=== PATIENT | male | born 1950 | race Caucasian/White ===

== ENCOUNTER 2020-02-06 07:41 | Outpatient (CLI) | payer MEDICARE, SELFPAY ==
--- NOTE | 2020-02-12 19:51 | SLEEP_ITS ---
Home Sleep Test. DATE OF STUDY: 02/06/2020 REASON FOR THIS STUDY: Sleep apnea, unspecified. HISTORY: This patient is a 69-year-old male, 5 feet 7 inches tall, weighing 165 pounds with a body mass index of 25.8. He has a history of loud snoring, which he realized in September of 2019. He snores loudly, deeply and gasps at time. He does not have a family history of this. He occasionally awakens from sleep feeling short of breath. He frequently awakens at night with heartburn, belching, coughing, snoring and snoring loudly enough that others complain about it. He did not complete the entire survey, so some of the questions are unanswered. He is constantly bothered by pain during the day, rarely is awakened by pain at night, occasionally wakes up feeling stiff in the morning, rarely with sore achy muscles, occasionally with pain in the neck and spine. He has dizziness, stomach problems, fatigue, headaches, bowel disturbances, depression, memory problems and concentration difficulties. He goes to bed at 11:00 p.m., waking 1 or 2 times during the night. He will wake up for 5 minutes, will get Tums for his indigestion or go urinate. He wakes at 9 in the morning. He does take short naps. A short nap is not refreshing. He is usually drowsy in the morning for 3 hours or longer. MEDICAL COMORBIDITIES: Chronic headaches. Hemorrhagic stroke, October 2015. 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 Sinus surgery. Depression. Gastroesophageal reflux disease. Hypertension. MEDICATIONS: 1. Adderall 30 mg twice a day and a half tablet at bedtime. 2. Amlodipine 10 mg a day. 3. Butalbital 50 mg. 4. Acetaminophen 325 mg. 5. Caffeine 40 mg. 6. Codeine 30 mg p.r.n. headaches. 7. Cardura 4 mg a day. 8. Carvedilol 12.5 mg twice a day. 9. Clorazepate 15 mg as needed at bedtime. 10. Lisinopril 40 mg daily. 11. Tamsulosin 0.4 mg daily. 12. Tramadol 50 mg q.6 hours. 13. Venlafaxine ER 150 mg daily. HABITS: Tobacco, quit 10 years ago. Caffeine two 12-ounce cups of coffee a day. No alcohol. No recreational drugs. DESCRIPTION OF THE STUDY: On the [place] Sleepiness Scale, his score was 13 in the doctor's office. This test was conducted as an unattended type 3 portable home sleep test using the 4 channel monitoring including respiratory effort channel, snoring channel, oxygen saturation channel, and heart rate channel. The study was scored using [facility] guidelines. The duration of the study was 8 hours 49 minutes. The apnea-hypopnea index was 3, which is low. The oxygen desaturation index was 2.2. The minimum desaturation was 88%. The average saturation was 93%. The patient had 6 apneas, 4 of the apneas were obstructive, 67% and 2 apneas were central, 33%. He had 17 hypopneas, 274 snoring events and 19 desaturations with 2 minutes spent below 89%. Heart rate ranged from 51 to 86 beats per minute. IMPRESSION: This home sleep test does not show evidence of significant sleep-disordered breathing with an apnea-hypopnea index of 3. This is not consistent with the patient's history. He gives a history of loud snoring, choking at night, waking up gasping for breath. It is likely that this AHI on this study underrepresented his degree of sleep-disordered breathing, possibly due to excessive wake time during the night or having left the device on too long. Home sleep tests underestimates severity, as this type of test assumes the patient is asleep the entire duration of the study. This patient's duration was 8 hours 49 minutes. His sleep schedule at home is 8 hours or less. The stakes are high for this patient, as he has had a hemorrhagic stroke and the patients who have untreated sleep apnea are more likely to have recurrent strokes. He also has hypertension, headaches,
== END 2020-02-06 07:42 | disposition home or self-care (01) ==
LOC: ANHCSM 07:48
PROVIDERS: PCP Internal Medicine; Visit Provider Internal Medicine
DX: G47.30 Sleep apnea, unspecified (principal)
CPT/HCPCS: 95806

== ENCOUNTER 2024-06-06 15:35 | Outpatient (CLI) | payer MEDICARE, SELFPAY ==
--- NOTE | 2024-06-06 15:40 | ECG_ITS ---
Test Date: 2024-06-06 16:00:59 Measurements Intervals [place] Rate: 59 P: 55 RI: 148 QRS: 27 QRSD: 78 T: 41 QT: 395 QTc: 391 Interpretive Statements SINUS BRADYCARDIA VOLTAGE CRITERIA FOR LVH BASELINE ARTIFACT- I, II, III, AVR, AVL, AVF, V1-V6 BORDERLINE ECG No previous ECG available for comparison Electronically Signed On 06-06-2024 18:29:10 CDT by Darron Lee D.O.
[2024-06-06 16:20] LABS: Basophils Percent Auto 0.7 % (0.2-1.2); Eosinophils Absolute Auto 0.2 K/mm3 (0-0.3); Eosinophils Percent Auto 4.1 % (0-4.4); Hematocrit 39.8 % (42.0-52.0); Hemoglobin 13.2 g/dL (14.0-18.0); Immature Granulocyte Absolute 0.03 K/mm3 (0.00-0.031); Immature Granulocyte Percent A 0.5 % (0-0.5); Lymphocytes Absolute Auto 1.59 K/mm3 (0.9-3.2); Lymphocytes Percent Auto 26.9 % (18.3-44.2); Mean Corpuscular HGB Conc 33.2 g/dl (32-36); Mean Corpuscular Hemoglobin 31.1 pg (26-34); Mean Corpuscular Volume 93.6 fl (80-100); Mean Platelet Volume 9.5 fl (7.4-10.4); Monocytes Absolute Auto 0.4 K/mm3 (0.1-0.6); Monocytes Percent Auto 7.4 % (2.6-8.5); Neutrophils Absolute Auto 3.6 K/mm3 (1.3-6.7); Neutrophils Percent Auto 60.4 % (45.5-73.1); Platelet Count Result 246 k/mm3 (150-375); Red Blood Count 4.25 M/mm3 (4.6-6.20); Red Cell Distribution Width 13.2 % (11.5-14.5); White Blood Count 5.9 K/mm3 (4.5-10.0)
[2024-06-06 16:31] LABS: Anion Gap 7 mmol/L (4-12); Blood Urea Nitrogen 16 mg/dL (9-20); Calcium 8.9 mg/dL (8.4-10.2); Carbon Dioxide 29 mmol/L (22-30); Chloride 102 mmol/L (98-107); Estimated Glomerular Filt Rate 42; Glucose 100 mg/dL (65-110); Potassium 4.6 mmol/L (3.4-5.0); Sodium 138 mmol/L (137-145)
== END 2024-06-06 15:36 | disposition home or self-care (01) ==
LOC: ANHSURGERY 15:38
PROVIDERS: PCP Internal Medicine; Visit Provider Surgery
DX: Z01.818 Encounter for other preprocedural examination (principal); I10 Essential (primary) hypertension; K40.90 Unilateral inguinal hernia, without obstruction or gangrene, not specified as recurrent; N13.8 Other obstructive and reflux uropathy; N40.1 Benign prostatic hyperplasia with lower urinary tract symptoms
CPT/HCPCS: 36415; 80048; 85025; 86850; 86900; 86901; 93005

== ENCOUNTER 2024-06-09 00:37 | Day surgery (SDC) | payer MEDICARE, SELFPAY ==
[2024-06-05 15:20] VITALS: BMI 23.5
--- NOTE | 2024-06-05 15:22 | PC.NURSE ---
Report to the Outpatient Waiting Room, entrance under the green pavilion located off [facility], at time _0600_ on date _[id number]_. Planned Procedure Time: _0730_. Time changes happen often and if your time is changed the preop area will call you the afternoon before. - You and your visitor will be asked to self-screen and do not enter if you have any COVID symptoms. - A mask is optional within the hospital at this time. Patients may have clear liquids (water, carbonated beverages, clear teas, apple juice) until 3 hours prior to surgery with a maximum of 20 ounces. - No food from midnight until time of surgery Take the following medications with a SIP of water the morning of surgery: ___Carvidilol and Venlafaxine DO NOT STOP ANY OF YOUR OTHER PRESCRIPTION MEDICATIONS PRIOR TO SURGERY ?EXCEPT THE FOLLOWING Medications to discontinue per physician ___Methlyne blue Date to take last fteu__[id number] Please no make-up, nail slovenian, hairspray, perfume, deodorant, or body powder the day of surgery. No jewelry (including any body piercings) or valuables the day of surgery, leave them at home. Please take a shower or bath the night before, or the morning of, surgery with an antibacterial soap. Wear comfortable, loose fitting clothing. - Jewelry must be removed prior to entering the operating room. Rings and piercings that are not removed may be cut off. - The hospital will not accept responsibility for valuables. - Please leave all valuables, including medications, at home the day of surgery. If you are going home after surgery, a licensed driver recruiter must drive you home. - NO public transportation without another adult if you receive anesthesia. - We recommend that an adult stay with you for 24 hours following discharge. - We also recommend that you do not drive, make important decision, drink alcoholic beverages, or take any drugs that were not prescribed by your health care provider for at least 24 hours after your discharge time. Follow any additional instructions given to you from your surgeon. If you or anyone in your household have experienced Covid symptoms in the past week, please notify your surgeon or the nurse liaison at the phone number below for possible testing. Telephone instructions given to __Bruce__and asked if any additional questions and then verbalized understanding. Patient advised to call surgeon office or pre surgery nurse liaison [phone] if any additional questions.
--- NOTE | 2024-06-05 16:19 | PM.SD2 ---
Same Day Admit/Disch: HPI History of Present Illness Chief complaint: left inguinal hernia Narrative: Abdias Matthews is a 74 year old male who presented to the office at the request of Dr. Clifford for evaluation in early April. He reports a 3 to 4-year history of bulging in his left groin with recent developing of associated pain, worse with cough. No change in bowel habits or urinary difficulty. Is able to reduce the bulge when lying down and wears a truss to help keep hernia reduced. He has history of open appendectomy as a child and right inguinal hernia repair by Dr. Bateman in approximately 2002. [facility] Past Medical History Medical History (Updated 06/09/24 @ 09:44 by Ethan Arreola MD) Anxiety Waldron's palsy Headache Hemorrhagic stroke 2014 Hyperlipidemia Hypertension Surgical History Surgical History Hx of appendectomy Open appendectomy as a child Hx of right inguinal hernia repair 2008 Hx of sinus surgery Family History Family History Father Lung cancer Mother Cervical cancer Social History Social History Smoking packs per day: 1 Smoking cigarettes per day: 20.0 Years smoked: 5 Smoking pack-years: 5.00 Smoking status: Former smoker Tobacco type: cigarettes Smoking end date: 06/05/04 Alcohol intake: never Substance use: never Substance use type: does not use Living arrangements: with family Gender identity (if verbalized by the patient): Male Spiritual care concerns: No Same Day Admit/Disch: Med Pre-admit Medications Home Medications Medication Instructions Recorded Confirmed Type kmurlydupm-zakhqdvnmzqcb-ayhgrkzr 1 tablet PO Q6H PRN Pain 04/27/24 06/05/24 History 50 mg-325 mg-40 mg tablet carvedilol 12.5 mg tablet 12.5 mg PO Q12H 04/27/24 06/09/24 History desoximetasone 0.25 % topical 1 applic topical DAILY PRN Rash 04/27/24 06/05/24 History cream (Topicort) dextroamphetamine-amphetamine 30 30 mg PO DAILY 04/27/24 06/09/24 History mg tablet (Adderall) doxazosin 4 mg tablet (Cardura) 4 mg PO DAILY 04/27/24 06/09/24 History finasteride 5 mg tablet 5 mg PO DAILY 04/27/24 06/09/24 History lisinopril 40 mg tablet 40 mg PO DAILY 04/27/24 06/09/24 History methylene blue 65 mg tablet 65 mg PO DAILY 04/27/24 06/09/24 History tamsulosin 0.4 mg capsule 0.4 mg PO DAILY 04/27/24 06/09/24 History tramadol 50 mg tablet 50 mg PO Q6H PRN Pain 04/27/24 06/09/24 History venlafaxine 150 mg 150 mg PO DAILY 04/27/24 06/09/24 History capsule,extended release 24 hr pantoprazole 40 mg tablet,delayed 40 mg PO DAILY #30 tabs 05/11/24 06/09/24 Rx release ibuprofen 600 mg tablet 600 mg PO Q6H PRN pain #14 tabs 06/09/24 Rx oxycodone-acetaminophen 5 mg-325 0.5 - 1 tablet PO Q6H PRN pain #10 06/09/24 Rx mg tablet tabs Review of Systems Review of Systems All systems reviewed & are unremarkable except as noted in HPI and below (HPI) Exam Const: General: comfortable, no acute distress, alert and awake HENMT: Head: normocephalic and atraumatic Mouth: Yes Normal oral and palatal mucosa present Other: Wears eyeglasses Eyes: Conjunctivae: conjunctivae normal Pupils: Equal, round and reactive pupils present EOM: EOMs intact bilaterally Neck: Neck: normal visual inspection, no lymphadenopathy and nontender Resp: Effort & Inspection: normal respiratory effort Auscultation: clear to auscultation bilaterally Cardio: Rate: regular rate Rhythm: regular rhythm Heart sounds: no gallops, no murmurs and no rubs GI: Inspection: non-distended GI Palp: Yes Soft to palpation, No Tenderness to palpation present (GI), No Hepatomegaly present and No Splenomegaly present : Male General Exam: Yes hernia (Left inguinal bulge, pulses with cough, reducible) and Yes other (Scar right groin) Penis: Yes normal penis
--- NOTE | 2024-06-08 15:05 | WPDANESEPPF ---
Anes - Initial Pre Proc Eval Procedure: Operation Date: 06/09/24 07:30 Proposed Procedures p Robotic Left Inguinal Hernia Repair with Mesh - Ethan Arreola MD Date/Time: 06/08/24 15:05 Surgeon: Ethan Arreola MD Pre Op Diagnosis: left inguinal hernia Patient Data Age: 74 Gender: M Height: 1.7 m Weight: 68.2 kg Allergies Allergy/AdvReac Type Severity Reaction Status Date / Time No Known Allergies Allergy Verified 06/09/24 06:15 Home Medications Medication Instructions Recorded Confirmed Type nquxtvcoek-dwjjvvijfirfc-stczvkln 1 tablet PO Q6H PRN Pain 04/27/24 06/05/24 History 50 mg-325 mg-40 mg tablet carvedilol 12.5 mg tablet 12.5 mg PO Q12H 04/27/24 06/09/24 History desoximetasone 0.25 % topical 1 applic topical DAILY PRN Rash 04/27/24 06/05/24 History cream (Topicort) dextroamphetamine-amphetamine 30 30 mg PO DAILY 04/27/24 06/09/24 History mg tablet (Adderall) doxazosin 4 mg tablet (Cardura) 4 mg PO DAILY 04/27/24 06/09/24 History finasteride 5 mg tablet 5 mg PO DAILY 04/27/24 06/09/24 History lisinopril 40 mg tablet 40 mg PO DAILY 04/27/24 06/09/24 History methylene blue 65 mg tablet 65 mg PO DAILY 04/27/24 06/09/24 History tamsulosin 0.4 mg capsule 0.4 mg PO DAILY 04/27/24 06/09/24 History tramadol 50 mg tablet 50 mg PO Q6H PRN Pain 04/27/24 06/09/24 History venlafaxine 150 mg 150 mg PO DAILY 04/27/24 06/09/24 History capsule,extended release 24 hr pantoprazole 40 mg tablet,delayed 40 mg PO DAILY #30 tabs 05/11/24 06/09/24 Rx release Patient hx anesthesia problems: none Family hx anesthesia problems: none Results Review: All pre-operative results and documents have been reviewed as part of the pre-operative evaluation. [facility] Past Medical History Medical History (Updated 06/09/24 @ 06:54 by Braeden J. Luchtefeld, DO) Anxiety Waldron's palsy Headache Hemorrhagic stroke 2015 Hyperlipidemia Hypertension Surgical History Surgical History Hx of appendectomy Open appendectomy as a child Hx of right inguinal hernia repair 2008 Hx of sinus surgery Family History Family History Father Lung cancer Mother Cervical cancer Social History Social History Smoking packs per day: 1 Smoking cigarettes per day: 20.0 Years smoked: 5 Smoking pack-years: 5.00 Smoking status: Former smoker Tobacco type: cigarettes Smoking end date: 06/05/04 Alcohol intake: never Substance use: never Substance use type: does not use Living arrangements: with family Gender identity (if verbalized by the patient): Male Spiritual care concerns: No Anes - Eval Final PreProcedure Day of Procedure 06/08/24 15:05 Patient weight: normal Heart: regular rate and rhythm Lungs: clear to auscultation and normal air movement Airway: Mallampati scale class II Neurological: alert and oriented Last oral intake: >/= 8 hours ASA classification: III Emergent: no Anesthetic plan: proceed Anesthesia type and monitoring: general ETT and standard monitoring Results Review: All pre-operative results and documents have been reviewed as part of the pre-operative evaluation. Informed Consent: The patient's anesthetic plan and its attendant risks and benefits were discussed with the patient/family/POA. Questions were solicited and answers provided to the satisfaction of the patient/family/POA.
[2024-06-09] VITALS (10 sets, daily range): BP systolic 105–123; BP diastolic 62–76; PULSE 56–69; RESP 12–20; TEMP 36.3–36.6; O2SAT 97–100
[2024-06-09] MEDS: ACETAMINOPHEN 500 MG TABLET 1000 MG PO (06:42)
[2024-06-09] MEDS: LACTATED RINGERS 1,000 ML 30 ML IV CONT ×2 (06:50→09:37)
[2024-06-09] MEDS: KETOROLAC 15 MG/ML VIAL (*BKC) IV PUSH (06:56)
--- NOTE | 2024-06-09 07:05 | WPDHPUPDATE1 ---
History and Physical Update Update Date/Time: 06/09/24 07:05 History and Physical has been reviewed, including an updated exam of the patient. There are NO changes in the patient's condition. Risks, benefits, and alternatives have been discussed and questions answered. Patient agrees to proceed with procedure.
[2024-06-09] MEDS: ceFAZolin 2 GM/D5W 50 ML 2 GM/50 ML BAG IVPB (07:42)
[2024-06-09] MEDS: BUPIVACAINE/EPINEPHRINE 0.5% 10 ML VIAL 30 ML INFILTRATE (08:29)
--- NOTE | 2024-06-09 09:34 | W.PM.PROC2 ---
Procedure Note - Detailed Date of Procedure 06/09/24 Pre-op Diagnosis left inguinal hernia Post-op Diagnosis Other (Incarcerated left inguinal hernia) Procedure Performed Robotic laparoscopic repair incarcerated left inguinal hernia with mesh Surgeon Ethan Arreola MD Manager Marketing Communications Cathy WHITE Anesthesia General and Local Indications Patient has had a left inguinal hernia for a few years. It is occasionally painful. He was seen in the office and the diagnosis was confirmed. He has had a previous open right inguinal hernia repair. He is taken to surgery now for robotic laparoscopic repair of his left inguinal hernia with mesh. Findings This was a direct inguinal hernia. It was very medial and it had small bowel incarcerated in the hernia although there was no evidence of proximal small bowel dilatation to suggest obstruction. Description of Procedure Patient was taken to surgery and induced into general anesthesia. Trocars were placed in the usual fashion starting with an applied Medical 5 mm trocar in the left upper abdomen. Local was infiltrated prior to placement of each of the trocars. Once the camera was in the abdomen the remaining trocars were all placed under direct vision and the 5 mm trocar was switched out for an 8 mm robotic trocar under direct visualization. Patient was placed in Trendelenburg. Mesh and suture were placed in the abdomen. The robot was brought into the field and the camera was docked and targeted. The instrument arms were then docked and the instruments were placed. The surgeon then went to the robotic console. The incarcerated small intestine was gently reduced leaving a small but obvious direct inguinal hernia. Peritoneal flap was taken down over the anterior aspect of the inguinal canal. This was developed broadly trying to leave as much of the properitoneal fat on the abdominal wall. More medially, I entered the retro rectus space and dissected down to Titus's ligament. Dissection was carried crossed Titus's ligament and the pubis was exposed. I dissected across the midline at least 2 cm and then also dissected posterior to Titus's ligament a couple of cm. I then progressed laterally and gently took down the peritoneum involved in the direct inguinal hernia. Dissection was carried out anteriorly and on each side and eventually this was able to be fully reduced. I then dissected in the area of the spermatic cord. I carefully dissected the peritoneum and the transversalis sling. The cord vessels and vas deferens were easily seen and were then dissected free from the peritoneum. Some fatty tissue in the internal ring and inguinal canal was reduced and removed. I then dissected the peritoneum off the cord vessels and dissected at least 4 cm posterior to the posterior aspect of the internal ring. I did some additional dissection on the more lateral aspect of Titus's ligament until I had found the wire bound box machine operator plug. The inguinal canal seemed to be very well dissected and exposed for mesh placement. The 16 x 10 cm mid left 3DMax mesh was then positioned. It was secured to the abdominal wall with 3-0 Vicryl suture. Suture were placed in Titus's ligament and then another suture medial to the inferior epigastric vessels. A final anterior suture lateral to the inferior epigastric vessels was also placed. I then closed the peritoneal defect with running 3-0 V lock suture. All looked good. The residual suture and needles were removed. Instruments were removed and insufflation stopped. The robot was undocked and then trocars were removed. Skin incisions were closed with subcuticular running 4-0 Monocryl skin suture. The wounds were dressed with Exofin surgical adhesive. The patient was then awakened and taken to recovery in good condition. Sponge needle counts were correct x2. Implants 16 x 10 cm left mid 3DMax mesh Estimated Blood Loss -5 Drains No Packing No Pathology None sent Complications None Con
== END 2024-06-09 11:28 | disposition home or self-care (01) ==
PROVIDERS: PCP Internal Medicine; Visit Provider Surgery
PROC: 8E0Y4CZ Robotic Assisted Procedure of Lower Extremity, Percutaneous Endoscopic Approach (ICD-10-PCS; CPT 49650; principal; 2024-06-09 07:30)
DX: K40.30 Unilateral inguinal hernia, with obstruction, without gangrene, not specified as recurrent (principal); I10 Essential (primary) hypertension; E78.5 Hyperlipidemia, unspecified; F41.9 Anxiety disorder, unspecified; G51.0 Bell's palsy; Z79.891 Long term (current) use of opiate analgesic; Z79.1 Long term (current) use of non-steroidal anti-inflammatories (NSAID); G89.18 Other acute postprocedural pain; Z98.890 Other specified postprocedural states; Z87.891 Personal history of nicotine dependence; Z80.1 Family history of malignant neoplasm of trachea, bronchus and lung; Z80.49 Family history of malignant neoplasm of other genital organs
CPT/HCPCS: 49507; S2900; 36415; 80048; 85025; 86850; 86900; 86901; 93005; A9270; C1781; J0690; J1100; J1596; J1885; J2405; J2704; J3010; J7030; J7120

== ENCOUNTER 2025-05-30 12:17 | Outpatient (CLI) | payer MEDICARE, SELFPAY ==
--- OUTSIDE RECORDS SUMMARY | 2025-05-30 12:20 | XMS_ITS | Clinical Summary ---
Author Organization [facility] Address [address] [place] [address] Care Team Providers Care Warehouse Shipper Name Role Phone Shahriar Clifford MD Primary Care Provider [phone] Allergies No known active allergies Medications amLODIPine 10 MG tablet Take 10 mg by mouth daily. Active carvedilol 12.5 MG tablet Take 12.5 mg by mouth 2 (two) times daily. Active lisinopril 40 MG tablet Take 40 mg by mouth daily. Active esomeprazole 20 MG capsule Take 20 mg by mouth 2 (two) times a day. Active venlafaxine XR 150 MG 24 hr capsule Take 150 mg by mouth daily. Active tamsulosin 0.4 MG Cap Take 0.4 mg by mouth 2 (two) times a day. Active Multiple Vitamins-Mineral s (MULTIVITAMIN ADULT OR) Active calcium-magnesiu m-zinc 333-133-5 MG Tab Take 1 tablet by mouth daily. Active Dolphin-3 Fatty Acids (OMEGA 3 OR) Active Social History Tobacco Use Types Packs/Day Years Used Date Smoking Tobacco: Former Smokeless Tobacco: Never Alcohol Use Standard Drinks/Week Comments Never 0 (1 standard drink = 0.6 oz pur e alcohol) AUDIT-C Answer Date Recorded Frequency of Alcohol Consumption Never 06/07/2020 Average Number of Drinks Not on file 020 Frequency of Binge Drinking Not on file 05/29 Sex and Gender Information Value Date Recorded Sex Assigned at Not on file Legal Sex Male 3:47 PM CDT Gender Identity Not on file Sexual Orientation Not on file Last Filed Vital Signs Vital Sign Reading Time Taken Comments Blood Pressure 112/76 06/12/2020 4:05 PM CDT Pulse 60 06/12/2020 4:05 PM CDT Temperature 36.3 C (97.3 F) 06/12/2020 3:49 PM CDT Respiratory Rate 19 06/12/2020 4:05 PM CDT Oxygen Saturation 96% 06/12/2020 4:05 PM CDT Inhaled Oxygen Concentration - - Weight 77.1 kg (170 lb) 06/07/2020 1:05 PM CDT Height 172.7 cm (5' 8) 06/07/2020 1:05 PM CDT Body Mass Index 25.85 06/07/2020 1:05 PM CDT Plan of Treatment Health Maintenance Due Date Last Done Comments Hepatitis C 1968 DTaP, Tdap and Td Vaccines ( 1 - Tdap) 1969 Pneumococcal Vaccine: 50+ Ye ars (1 of 1 - PCV) 2000 Zoster Vaccines (1 of 2) 2000 Annual Medicare Wellness Visit 2015 COVID-19 Vaccine ( - 2023-2 5 season) 2024 RSV Immunization or 60+ Years (1 - 1-dose 75+ series) 2025 Colorectal Cancer Screening Colonoscopy (10 Years) 06/12/2030 06/12/2020 Meningococcal B Vaccine Aged Out No l onger eligible based on patient's age to complete this topic Meningococcal Vaccine Aged Out No moises barber eligible based on patient's age to complete this topic RSV Immunizations Under 20 Months Aged Out No longer eligible based on patient's age to complete this topic [place] [address] [facility] Care Teams Warehouse Shipper Relationship Specialty Start Date End Date Shahriar Clifford MD [address] [phone] PCP - General INTERNAL MEDICINE 06/10/20
--- OUTSIDE RECORDS SUMMARY | 2025-05-30 12:20 | XMS_ITS | Encounter Summary ---
Author Organization [facility] Address [address] [place] [address] Care Team Providers Care Interpreter And Translator Name Role Phone Shahriar Clifford MD Primary Care Provider [phone] Encounter Details Date Type Department Care Team (Late st Contact Info) Description 06/11/2020 Prep for Procedure [facility] One [place], [place] [id number] Florencio Garcia MD 3 [facility] [address] [place], [place] [address] Social History Tobacco Use Types Packs/Day Years [...] on file Sexual Orientation Not on file COVID-19 Exposure Response Date Recorded In the last month, have you been in contact with someone who was confirmed or suspected to have Coronavirus / COVID-19? No / Unsure 06/12/2020 1:36 PM CDT documented as of this encounter Plan of Treatment Not on file documented as of this encounter Results * RESPIRATORY PCR PANEL 2 (COLONSCOPY PATIENTS ONLY) (06/11/2020 11:00 AM CDT) Pathologist [facility] ADENOVIRUS PCR (RESP) NOT DETECTED NOT DETECTED 06/11/2020 2:04 PM CDT [facility] CORONAVIRUS 229E PCR (RESP) NOT DETECTED NOT DETECTED 06/11/2020 2:04 PM CDT [facility] CORONAVIRUS HKU1 PCR (RESP) NOT DETECTED NOT DETECTED 06/11/2020 2:04 PM CDT [facility] CORONAVIRUS NL63 PCR (RESP) NOT DETECTED NOT DETECTED 06/11/2020 2:04 PM CDT [facility] CORONAVIRUS OC43 PCR (RESP) NOT DETECTED NOT DETECTED 06/11/2020 2:04 PM CDT [facility] METAPNEUMOVIRUS PCR (RESP) NOT DETECTED NOT DETECTED 06/11/2020 2:04 PM CDT [facility] RHINOVIRUS/ENTEROV IRUS PCR (RESP) NOT DETECTED NOT DETECTED 06/11/2020 2:04 PM CDT [facility] INFLUENZA A PCR (RESP) NOT DETECTED NOT DETECTED 06/11/2020 2:04 PM CDT [facility] INFLUENZA B PCR (RESP) NOT DETECTED NOT DETECTED 06/11/2020 2:04 PM CDT [facility] PARAINFLUENZA 1 PCR (RESP) NOT DETECTED NOT DETECTED 06/11/2020 2:04 PM CDT [facility] PARAINFLUENZA 2 PCR (RESP) NOT DETECTED NOT DETECTED 06/11/2020 2:04 PM CDT [facility] PARAINFLUENZA 3 PCR (RESP) NOT DETECTED NOT DETECTED 06/11/2020 2:04 PM CDT [facility] PARAINFLUENZA 4 PCR (RESP) NOT DETECTED NOT DETECTED 06/11/2020 2:04 PM CDT [facility] RSV PCR (RESP) NOT DETECTED NOT DETECTED 06/11/2020 2:04 PM CDT [facility] B PARAPERTUSIS PCR (RESP) NOT DETECTED NOT DETECTED 06/11/2020 2:04 PM CDT [facility] BORDETELLA PERTUSSIS PCR (RESP) NOT DETECTED NOT DETECTED 06/11/2020 2:04 PM CDT [facility] CHLAMYDOPHILA PNEUMONIAE PCR (RESP) NOT DETECTED NOT DETECTED 06/11/2020 2:04 PM CDT [facility] MYCOPLASMA PNEUMONIAE PCR (RESP) NOT DETECTED NOT DETECTED 06/11/2020 2:04 PM CDT [facility] CORONAVIRUS SARS COV 2 PCR (RESP) NOT DETECTED NOT DETECTED 06/11/2020 2:04 PM CDT [facility] Comment: THE SARS-CoV-2 TEST HAS BEEN AUTHORIZED BY THE FDA UNDER AN EUA FOR USE BY AUTHORIZED LABORATORIES. NASOPHARYNGEAL STRUCTURE / Unknown 06/11/2020 11:00 AM CDT Florencio Garcia MD MICROBIOLOGY - [facility] ELIZABETH FUENTES Final Result [facility] [address] [place] [address], documented in this encounter Visit Diagnoses Diagnosis Positive colorectal cancer screening using Cologuard test- Primary documented in this encounter Additional Health Concerns Infection Onset Date Last Indicated Resolved Time COVID-19 Rule Out 06/11/2020 06/11/2020 06/11/2020 2:04 PM CDT documented as of this encounter Care Teams Interpreter And Translator Relationship Specialty Start Date End Date Shahriar Clifford MD [address] [phone] PCP - General INTERNAL MEDICINE 06/10/20 documented as of this encounter
--- OUTSIDE RECORDS SUMMARY | 2025-05-30 12:20 | XMS_ITS | Continuity of Care Document ---
Author Organization [facility] Address [address] [place] [address] [place] [address] Phone Care Team Providers Care Adolescent Medicine Specialist Name Role Phone Langford OD, Kayode Unavailable Unavailable Procedures Procedure Date Office/outpatient Visit, Est Eye Exam, New Patient Refraction Advance Directives Directive Yes / No Effective Date File Name No Information Encounters Encounter Description Practice Location Reason(s) For Visit Diagnoses Date Provider Providers Copied on Encounter Office/outpat ient Visit, Est [facility] with [facility], [address] [place] [address] [address], [place], [place], [id number], [place] tel:[phone] SEC [facility] No Information 3-201 0 Langford OD Kayode. [address] , [address], [place], [address], [place]. tel:[phone] Merged with [facility], [address] [place] [address] [address], [place], [place], [id number], [place] tel:[phone] SEC [facility] No Information 5-200 9 Langford OD Kayode. [address] , [address], [place], [address], [place]. tel:[phone] Family History Family Member Type Diagnosis Age [...]
[2025-05-30 13:11] LABS: Hematocrit 35.8 % (42.0-52.0); Hemoglobin 11.2 g/dL (14.0-18.0); Mean Corpuscular HGB Conc 31.3 g/dl (32-36); Mean Corpuscular Hemoglobin 28.6 pg (26-34); Mean Corpuscular Volume 91.6 fl (80-100); Platelet Count Result 382 k/mm3 (150-375); Red Blood Count 3.91 M/mm3 (4.6-6.20); White Blood Count 8.4 K/mm3 (4.5-10.0)
[2025-05-30 13:29] LABS: Iron 30 ug/dL (49-181)
[2025-05-30 13:33] LABS: Alanine Aminotransferase 13 U/L (6-50); Albumin Level 3.3 g/dL (3.5-5.1); Alkaline Phosphatase 91 U/L (38-126); Anion Gap 9 mmol/L (4-12); Aspartate Amino Transferase 27 U/L (17-59); Bilirubin,Total 0.2 mg/dL (0.2-1.3); Blood Urea Nitrogen 22 mg/dL (9-20); CRP. 5.7 mg/dL (<1.0); Calcium 9.2 mg/dL (8.4-10.2); Carbon Dioxide 25 mmol/L (22-30); Chloride 103 mmol/L (98-107); Estimated Glomerular Filt Rate > 60; Glucose 93 mg/dL (65-110); Potassium 4.5 mmol/L (3.4-5.0); Sodium 137 mmol/L (137-145); Total Protein 6.2 g/dL (6.3-8.2)
[2025-05-30 13:38] LABS: Percent Iron Saturation 10 % (20-50)
[2025-05-30 14:01] LABS: Hepatitis B Surface Antigen Negative (Negative)
[2025-05-30 14:06] LABS: Ferritin 53.50 ng/mL (11.1-264)
[2025-05-30 14:07] LABS: HAV RESULT Negative (Negative); Hepatitis B Core IgM Result Negative (Negative)
[2025-05-30 14:36] LABS: Vitamin B12. > 1000.0 pg/mL (239-931)
[2025-06-02 08:04] LABS: Gliadin AB, IgG <1.0 U/mL
[2025-06-04 14:18] LABS: Immunoglobulin A 135 mg/dL (70-320); TTG IGA AB <1.0 U/mL
== END 2025-05-30 12:18 | disposition home or self-care (01) ==
LOC: ANHLAB 12:18
PROVIDERS: PCP Internal Medicine; Visit Provider Nurse Practitioner
DX: D64.9 Anemia, unspecified (principal); R63.4 Abnormal weight loss; K52.9 Noninfective gastroenteritis and colitis, unspecified; R19.4 Change in bowel habit; R10.9 Unspecified abdominal pain; R13.10 Dysphagia, unspecified; R53.1 Weakness
CPT/HCPCS: 36415; 80053; 80074; 82607; 82728; 82746; 82784; 83540; 83550; 85027; 85652; 86140

== ENCOUNTER 2025-06-08 09:15 | Outpatient (CLI) | payer MEDICARE, SELFPAY ==
--- NOTE | ~2025-06-08 | CT_ITS ---
Clinical Indication: Abnormal weight loss CT Scan of the Chest, Abdomen, and Pelvis with Contrast: Technique: Contiguous sections were acquired throughout the chest, abdomen, and pelvis after intraven ous administration of 100 cc of Omnipaque 350. Dose reduction technique was used on this scan by coleen gallegos automated exposure control and iterative reconstruction technique. The dose-length product (DL P) was 316.38 mGy-cm. Findings: There is no evidence of any significant mediastinal, hilar or axillary lymphadenopathy. No pulmonary embolus seen. Ascending aorta measures 4.4 cm in diameter. No aortic dissection. Small hiatal hernia noted. There is no evidence of pleural or pericardial effusion. The lungs are clear. No pulmonary nodules or infiltrates are noted. Numerous scattered hepatic cysts are present. The spleen, pancreas, gallbladder, and adrenal glands a re within normal limits. Numerous small bilateral renal cysts are present. There are atherosclerotic calcifications of the aorta. No lymphadenopathy. Possible extensive wall thickening of the transverse, descending, sigmoid colon versus underdistentio n. No bowel obstruction. No abscess or free air. Urinary bladder is unremarkable. No pelvic mass seen. No ascites. Impression: Possible extensive infectious/inflammatory colitis, as detailed above, versus underdistention. Correl ate clinically. 4.4 cm ascending aortic aneurysm. Hepatic and renal cysts, as above. Reviewed, dictated and finalized at location . Impression: Possible extensive infectious/inflammatory colitis, as detailed above, versus u nderdistention. Correlate clinically. 4.4 cm ascending aortic aneurysm. Hepatic and renal cysts, as above.
--- OUTSIDE RECORDS SUMMARY | 2025-06-08 09:24 | XMS_ITS | Encounter Summary ---
Author Organization [facility] Address [address] [place] [address] Care Team Providers Care Relief Mate Name Role Phone Shahriar Clifford MD Primary Care Provider [phone] Encounter Details Date Type Department Care Team (Late st Contact Info) Description 06/11/2020 Prep for Procedure [facility] One Day [place], [place] [address] Florencio Garcia MD 3 [facility] [address] [place], [place] [address] Social History Tobacco Use Types Packs/Day Years [...] PATIENTS ONLY) (06/11/2020 11:00 AM CDT) Pathologist [facility] ADENOVIRUS PCR (RESP) NOT DETECTED NOT DETECTED 06/11/2020 2:04 PM CDT [facility] CORONAVIRUS 229E PCR (RESP) NOT DETECTED NOT DETECTED 06/11/2020 2:04 PM CDT [facility] CORONAVIRUS HKU1 PCR (RESP) NOT DETECTED NOT DETECTED 06/11/2020 2:04 PM CDT [facility] CORONAVIRUS NL63 PCR (RESP) NOT DETECTED NOT DETECTED 06/11/2020 2:04 PM CDT [facility] CORONAVIRUS OC43 PCR (RESP) NOT DETECTED NOT DETECTED 06/11/2020 2:04 PM CDT [facility] METAPNEUMOVIRUS PCR (RESP) NOT DETECTED NOT DETECTED 06/11/2020 2:04 PM CDT [facility] RHINOVIRUS/ENTEROV IRUS PCR (RESP) NOT DETECTED NOT DETECTED 06/11/2020 2:04 PM CDT [facility] INFLUENZA A PCR (RESP) NOT DETECTED NOT DETECTED 06/11/2020 2:04 PM CDT [facility] INFLUENZA B PCR (RESP) NOT DETECTED NOT DETECTED 06/11/2020 2:04 PM CDT [facility] PARAINFLUENZA 1 PCR (RESP) NOT DETECTED NOT DETECTED 06/11/2020 2:04 PM CDT [facility] PARAINFLUENZA 2 PCR (RESP) NOT DETECTED NOT DETECTED 06/11/2020 2:04 PM CDT [facility] PARAINFLUENZA 3 PCR (RESP) NOT DETECTED NOT DETECTED 06/11/2020 2:04 PM CDT [facility] PARAINFLUENZA 4 PCR (RESP) NOT DETECTED NOT DETECTED 06/11/2020 2:04 PM CDT [facility] RSV PCR (RESP) NOT DETECTED NOT DETECTED 06/11/2020 2:04 PM CDT [facility] B PARAPERTUSIS PCR (RESP) NOT DETECTED NOT DETECTED 06/11/2020 2:04 PM CDT [facility] BORDETELLA PERTUSSIS PCR (RESP) NOT DETECTED NOT DETECTED 06/11/2020 2:04 PM CDT [facility] CHLAMYDOPHILA PNEUMONIAE PCR (RESP) NOT DETECTED NOT DETECTED 06/11/2020 2:04 PM CDT [facility] MYCOPLASMA PNEUMONIAE PCR (RESP) NOT DETECTED NOT DETECTED 06/11/2020 2:04 PM CDT [facility] CORONAVIRUS SARS COV 2 PCR (RESP) NOT DETECTED NOT DETECTED 06/11/2020 2:04 PM CDT [facility] Comment: THE SARS-CoV-2 TEST HAS BEEN AUTHORIZED BY THE FDA UNDER AN EUA FOR USE BY AUTHORIZED LABORATORIES. NASOPHARYNGEAL STRUCTURE / Unknown 06/11/2020 11:00 AM CDT Florencio Garcia MD MICROBIOLOGY - [facility] ELIZABETH FUENTES Final Result [facility] [address] [place] [address], documented in this encounter Visit Diagnoses Diagnosis Positive colorectal cancer screening using Cologuard test- Primary documented in this encounter Additional Health Concerns Infection Onset Date Last Indicated Resolved Time COVID-19 Rule Out 06/11/2020 06/11/2020 06/11/2020 2:04 PM CDT documented as of this encounter Care Teams Relief Mate Relationship Specialty Start Date End Date Shahriar Clifford MD [address] [phone] PCP - General INTERNAL MEDICINE 06/10/20 documented as of this encounter
--- OUTSIDE RECORDS SUMMARY | 2025-06-08 09:24 | XMS_ITS | Clinical Summary ---
Author Organization [facility] Address [address] [place] [address] Care Team Providers Care Document Preparer Microfilming Name Role Phone Shahriar Clifford MD Primary Care Provider [phone] Allergies No known active allergies Medications amLODIPine [...] Take 1 tablet by mouth daily. Active [place]-3 Fatty Acids (OMEGA 3 OR) Active Social [...] to complete this topic [place] [place] [address] [facility] [place] [address] Care Teams Document Preparer Microfilming Relationship Specialty Start Date End Date Shahriar Clifford MD [address] [phone] PCP - General INTERNAL MEDICINE 06/10/20
--- OUTSIDE RECORDS SUMMARY | 2025-06-08 09:24 | XMS_ITS | Continuity of Care Document ---
Author Organization [facility] Address [address] [place] [address] [place] [address] Phone Care Team Providers Care Senior Estimator Name Role Phone Langford OD, Kayode Unavailable Unavailable Procedures Procedure Date Office/outpatient Visit, Est Eye Exam, New Patient Refraction Advance Directives Directive Yes / No Effective Date File Name No Information Encounters Encounter Description Practice Location Reason(s) For Visit Diagnoses Date Provider Providers Copied on Encounter Office/outpat ient Visit, Est [facility], [address] [place] [address] [address], [place], [place], [id number], [place] tel:[phone] SEC [facility] No Information 3-201 0 Langford OD Kayode. [address] , [address], [place], [address], [place]. tel:[phone] [facility], [address] [place] [address] [address], [place], [place], [id number], [place] tel:[phone] SEC [facility] No Information 5-200 9 Langford OD Kayode. [address] , [address], [place], [address], [place]. tel:[phone] Family History Family Member Type Diagnosis Age [...]
== END 2025-06-08 09:16 | disposition home or self-care (01) ==
PROVIDERS: PCP Internal Medicine; Visit Provider Nurse Practitioner
DX: D64.9 Anemia, unspecified (principal); K52.9 Noninfective gastroenteritis and colitis, unspecified; R10.9 Unspecified abdominal pain; R13.10 Dysphagia, unspecified; R19.4 Change in bowel habit; R53.1 Weakness; R63.4 Abnormal weight loss; N28.1 Cyst of kidney, acquired; K76.89 Other specified diseases of liver; I71.40 Abdominal aortic aneurysm, without rupture, unspecified
CPT/HCPCS: 71260; 74177; Q9967

== ENCOUNTER 2025-08-03 01:51 | Day surgery (SDC) | payer MEDICARE, SELFPAY ==
--- OUTSIDE RECORDS SUMMARY | 2010-04-10 07:45 | XMS_ITS | Continuity of Care Document ---
Author Organization [facility] Address [address] [place] [address] [place] [address] Phone Care Team Providers Care Weaver Apprentice Name Role Phone Langford OD, Kayode Unavailable Unavailable Procedures Procedure Date Office/outpatient Visit, Est Eye Exam, New Patient Refraction Advance Directives Directive Yes / No Effective Date File Name No Information Encounters Encounter Description Practice Location Reason(s) For Visit Diagnoses Date Provider Providers Copied on Encounter Office/outpat ient Visit, Est [facility], [address] [place] [address] [address], [place], [place], [id number], [place] tel:[phone] [facility] No Information 3-201 0 Langford OD Kayode. [address] [facility] , [address], [place], [address], [place]. tel:[phone] [facility], [address] [place] [address] [address], [place], [place], [id number], [place] tel:[phone] [facility] No Information 5-200 9 Langford OD Kayode. [address] , [address], [place], [address], [place]. tel:[phone] Family History Family Member Type Diagnosis Age At Onset No Information Payers Payer name Insurance type Covered democrat ID Authoriza tion(s) No Information Social History Type Description Quantity Date Captured Comments Sex Male Smoking Status No Information Chief Complaint And Reason For Visit No Information Reason For Referral Reason For Referral No Information History Of Present Illness Encounter Date Complaint History Of Prese nt Illness No Information Functional Status Date Functional Assessmen t No Information Instructions Date Instruction Additional Infor mation No Information Assessments Type Assessment Date No Information Patient Care Teams Name Effective Dates (start - stop) Status Members No Information
[2025-07-24 09:28] VITALS: BMI 23.5
--- OUTSIDE RECORDS SUMMARY | 2025-08-03 01:54 | XMS_ITS | Encounter Summary ---
Author Organization [facility] Address [address] [place] [address] Care Team Providers Care Stitch Marker Name Role Phone Shahriar Clifford MD Primary Care Provider [phone] Encounter Details Date Type Department Care Team (Late st Contact Info) Description 06/11/2020 Prep for Procedure [facility] One Day [facility] [place], [place] [address] Florencio Garcia MD 3 [facility] [address] [place], [place] [address] Social History Tobacco Use Types Packs/Day Years [...] PATIENTS ONLY) (06/11/2020 11:00 AM CDT) Pathologist [facility] ADENOVIRUS PCR (RESP) NOT DETECTED NOT DETECTED 06/11/2020 2:04 PM CDT [facility] CORONAVIRUS 229E PCR (RESP) NOT DETECTED NOT DETECTED 06/11/2020 2:04 PM CDT [facility] CORONAVIRUS HKU1 PCR (RESP) NOT DETECTED NOT DETECTED 06/11/2020 2:04 PM CDT [facility] CORONAVIRUS NL63 PCR (RESP) NOT DETECTED NOT DETECTED 06/11/2020 2:04 PM CDT [facility] CORONAVIRUS OC43 PCR (RESP) NOT DETECTED NOT DETECTED 06/11/2020 2:04 PM CDT [facility] METAPNEUMOVIRUS PCR (RESP) NOT DETECTED NOT DETECTED 06/11/2020 2:04 PM CDT [facility] RHINOVIRUS/ENTEROV IRUS PCR (RESP) NOT DETECTED NOT DETECTED 06/11/2020 2:04 PM CDT [facility] INFLUENZA A PCR (RESP) NOT DETECTED NOT DETECTED 06/11/2020 2:04 PM CDT [facility] INFLUENZA B PCR (RESP) NOT DETECTED NOT DETECTED 06/11/2020 2:04 PM CDT [facility] PARAINFLUENZA 1 PCR (RESP) NOT DETECTED NOT DETECTED 06/11/2020 2:04 PM CDT [facility] PARAINFLUENZA 2 PCR (RESP) NOT DETECTED NOT DETECTED 06/11/2020 2:04 PM CDT [facility] PARAINFLUENZA 3 PCR (RESP) NOT DETECTED NOT DETECTED 06/11/2020 2:04 PM CDT [facility] PARAINFLUENZA 4 PCR (RESP) NOT DETECTED NOT DETECTED 06/11/2020 2:04 PM CDT [facility] RSV PCR (RESP) NOT DETECTED NOT DETECTED 06/11/2020 2:04 PM CDT [facility] B PARAPERTUSIS PCR (RESP) NOT DETECTED NOT DETECTED 06/11/2020 2:04 PM CDT [facility] BORDETELLA PERTUSSIS PCR (RESP) NOT DETECTED NOT DETECTED 06/11/2020 2:04 PM CDT [facility] CHLAMYDOPHILA PNEUMONIAE PCR (RESP) NOT DETECTED NOT DETECTED 06/11/2020 2:04 PM CDT [facility] MYCOPLASMA PNEUMONIAE PCR (RESP) NOT DETECTED NOT DETECTED 06/11/2020 2:04 PM CDT [facility] CORONAVIRUS SARS COV 2 PCR (RESP) NOT DETECTED NOT DETECTED 06/11/2020 2:04 PM CDT [facility] Comment: THE SARS-CoV-2 TEST HAS BEEN AUTHORIZED BY THE FDA UNDER AN EUA FOR USE BY AUTHORIZED LABORATORIES. NASOPHARYNGEAL STRUCTURE / Unknown 06/11/2020 11:00 AM CDT Florencio Garcia MD MICROBIOLOGY - [facility] ELIZABETH FUENTES Final Result [facility] [address] [place] [address], documented in this encounter Visit Diagnoses Diagnosis Positive colorectal cancer screening using Cologuard test- Primary documented in this encounter Additional Health Concerns Infection Onset Date Last Indicated Resolved Time COVID-19 Rule Out 06/11/2020 06/11/2020 06/11/2020 2:04 PM CDT documented as of this encounter Care Teams Stitch Marker Relationship Specialty Start Date End Date Shahriar Clifford MD [address] [phone] PCP - General INTERNAL MEDICINE 06/10/20 documented as of this encounter
--- OUTSIDE RECORDS SUMMARY | 2025-08-03 01:54 | XMS_ITS | Clinical Summary ---
Author Organization [facility] Address [address] [place] [address] Care Team Providers Care Ent Physician Name Role Phone Shahriar Clifford MD Primary Care Provider [phone] Allergies No known active allergies Medications amLODIPine [...] Take 1 tablet by mouth daily. Active [place]-3 Fatty Acids (OMEGA 3 OR) Active Social [...] to complete this topic [place] [place] [address] [facility] Care Teams Ent Physician Relationship Specialty Start Date End Date Shahriar Clifford MD [address] [phone] PCP - General INTERNAL MEDICINE 06/10/20
[2025-08-03 12:52] VITALS: BP 159/86; PULSE 67; RESP 16; TEMP 36.6; O2SAT 99
--- NOTE | 2025-08-03 12:53 | P.PNAN_ITS ---
Anes - Initial Pre Proc Eval Procedure: Operation Date: 08/03/25 14:00 Proposed Procedures p EGD & Diagnostic Colonoscopy - Savage Ramsay MD Date/Time: 08/03/25 12:53 Surgeon: Savage Ramsay MD Pre Op Diagnosis: Hiccough, Unspecified abdominal pain Patient Data Age: 75 Gender: M Height: 1.7 m Weight: 68.1 kg Allergies Allergy/AdvReac Type Severity Reaction Status Date / Time No Known Allergies Allergy Verified 08/03/25 12:51 Home Medications ?Medication ?Instructions ?Recorded ?Confirmed ?Type ahzukxazof-gnxrqtjrjfbjt-ifkfzgzd 1 tablet PO Q6H PRN Pain 04/27/24 07/24/25 History 50 mg-325 mg-40 mg tablet carvedilol 12.5 mg tablet 12.5 mg PO Q12H 04/27/2404/22 History desoximetasone 0.25 % topical 1 applic topical DAILY P RN Rash 04/27/24 07/24/25 History cream (Topicort) dextroamphetamine-amphetamine 30 30 mg PO DAILY 08/03/25 History mg tablet (Adderall) doxazosin 4 mg tablet (Cardura) 4 mg PO DAILY 04/27/24 08/03/25 History finasteride 5 mg tablet 5 mg PO DAILY 04/27/2408/03 History lisinopril 40 mg tablet 40 mg PO DAILY 04/27/2404/22 History tamsulosin 0.4 mg capsule 0.4 mg PO DAILY 04/27/2404/22 History tramadol 50 mg tablet 50 mg PO Q6H PRN Pain 07/24/25 History venlafaxine 150 mg 150 mg PO DAILY 04/27/2404/22 History capsule,extended release 24 hr pantoprazole 40 mg tablet,delayed 40 mg PO DAILY #30 t abs 05/11/24 08/03/25 Rx release cholestyramine (with sugar) 4 gram 4 g PO BID #60 ea 0 05/31/25 07/24/25 Rx powder for susp in a packet (Questran) clorazepate dipotassium 7.5 mg 7.5 mg PO .COMPLEX PRN anxiety 07/24/25 07/24/25 History tablet Patient hx anesthesia problems: none Family hx anesthesia problems: none Results Review: All pre-operative results and documents have been reviewed as part of the pre- operative evaluation. [facility] Past Medical History Medical History (Updated 08/03/25 @ 12:54 by Braeden Cornelius DO) AAA (abdominal aortic aneurysm) Waldron's palsy Anxiety Hyperlipidemia Hypertension Headache Hemorrhagic stroke 2014 Surgical History Surgical History H/O left inguinal hernia repair 06/09/24 Dr. Arreola Hx of sinus surgery Hx of appendectomy Open appendectomy as a child Hx of right inguinal hernia repair 2008 Family History Family History Father Lung cancer Mother Cervical cancer Social History Social History Smoking packs per day: 1 Smoking cigarettes per day: 20.0 Years smoked: 5 Smoking pack-years: 5.00 Smoking status: Former smoker Tobacco type: cigarettes Smoking end date: 06/05/04 Alcohol intake: never Substance use: never Substance use type: does not use Living arrangements: with family Gender identity (if verbalized by the patient): Male Spiritual care concerns: No Anes - Eval Final PreProcedure Day of Procedure 08/03/25 12:53 Patient weight: normal Heart: regular rate and rhythm Lungs: clear to auscultation and normal air movement Airway: Mallampati scale class II Neurological: alert and oriented Last oral intake: >/= 8 hours ASA classification: III Emergent: no Anesthetic plan: proceed Anesthesia type and monitoring: general GIVS and standard monitoring Results Review: All pre-operative results and documents have been reviewed as part of the pre- operative evaluation. Informed Consent: The patient's anesthetic plan and its attendant risks and benefits were discussed with the patient/family/POA. Questions were solicited and answers provided to the satisfaction of the patient/family/POA.
[2025-08-03] MEDS: LACTATED RINGERS 1,000 ML 150 ML IV CONT (12:58)
--- NOTE | 2025-08-03 12:58 | SUR.PREOP ---
Spoke to Dr. Cornelius about abdominal aortic aneurysm that was found on CT scan. Notified him patient has not followed with anyone about these results. He is okay proceeding with procedure.
--- NOTE | 2025-08-03 13:03 | PM.HPGS ---
History of Present Illness History of Present Illness Consent: Risks, benefits, and alternatives have been discussed and questions answered. Patient agrees to proceed with procedure. Chief complaint: Hiccough, Unspecified abdominal pain Narrative: Abdias Matthews is a 75 year old male with diarrhea, serology for celiac negative and also dysphagia Review of Systems Review of Systems: All systems reviewed & are unremarkable except as noted in HPI and below PMFSH Past Medical History Medical History (Updated 08/03/25 @ 12:54 by Braeden Cornelius, ) AAA (abdominal aortic aneurysm) Waldron's palsy Anxiety Hyperlipidemia Hypertension Headache Hemorrhagic stroke 2014 Surgical History Surgical History H/O left inguinal hernia repair 06/09/24 Dr. Arreola Hx of sinus surgery Hx of appendectomy Open appendectomy as a child Hx of right inguinal hernia repair 2008 Family History Family History Father Lung cancer Mother Cervical cancer Social History Social History Smoking packs per day: 1 Smoking cigarettes per day: 20.0 Years smoked: 5 Smoking pack-years: 5.00 Smoking status: Former smoker Tobacco type: cigarettes Smoking end date: 06/05/04 Alcohol intake: never Substance use: never Substance use type: does not use Living arrangements: with family Gender identity (if verbalized by the patient): Male Spiritual care concerns: No Meds Home Medications and Allergies Home Medications ?Medication ?Instructions ?Recorded ?Confirmed ?Type nevtwofsze-neqwwlkyeiqfr-nypvzrvw 1 tablet PO Q6H PRN Pain 04/27/24 07/24/25 History 50 mg-325 mg-40 mg tablet carvedilol 12.5 mg tablet 12.5 mg PO Q12H 04/27/24 08/03/25 History desoximetasone 0.25 % topical 1 applic topical DAILY PRN Rash 04/27/24 07/24/25 History cream (Topicort) dextroamphetamine-amphetamine 30 30 mg PO DAILY 04/27/24 08/03/25 History mg tablet (Adderall) doxazosin 4 mg tablet (Cardura) 4 mg PO DAILY 04/27/24 08/03/25 History finasteride 5 mg tablet 5 mg PO DAILY 04/27/24 08/03/25 History lisinopril 40 mg tablet 40 mg PO DAILY 04/27/24 08/03/25 History tamsulosin 0.4 mg capsule 0.4 mg PO DAILY 04/27/24 08/03/25 History tramadol 50 mg tablet 50 mg PO Q6H PRN Pain 04/27/24 07/24/25 History venlafaxine 150 mg 150 mg PO DAILY 04/27/24 08/03/25 History capsule,extended release 24 hr pantoprazole 40 mg tablet,delayed 40 mg PO DAILY #30 tabs 05/11/24 08/03/25 Rx release cholestyramine (with sugar) 4 gram 4 g PO BID #60 ea 05/31/25 07/24/25 Rx powder for susp in a packet (Questran) clorazepate dipotassium 7.5 mg 7.5 mg PO .COMPLEX PRN anxiety 07/24/25 07/24/25 History tablet Allergies Allergy/AdvReac Type Severity Reaction Status Date / Time No Known Allergies Allergy Verified 08/03/25 12:51 Vital Signs Vital Signs - 24 hr 08/03/25 12:52 Temperature 97.8 F Pulse Rate 67 Respiratory Rate 16 Blood Pressure 159/86 H Pulse Oximetry 99 Oxygen Delivery Room Air Exam Const: General: cooperative and comfortable Neck: Neck: normal visual inspection Assessment and Plan Assessment and plan (1) Chronic diarrhea: Code(s): K52.9 - Noninfective gastroenteritis and colitis, unspecified Status: Acute Assessment and Plan: colonoscopy (2) Dysphagia: Code(s): R13.10 - Dysphagia, unspecified Status: Acute Assessment and Plan: egd
--- NOTE | 2025-08-03 13:15 | SUR.OPER ---
EGD end 1312 COLONOSCOPY START 131
--- NOTE | 2025-08-03 13:16 | S_PTH ---
PATIENT: Abdias Matthews LOC: [facility]#:[id number] AGE/SX: 75/M ROOM: RE08/03/[address]: Savage Ramsay MD : 1950 BED: DIS: 08/03/2025 SPEC #: [id number] RECD: 08/03/25 14:18 STATUS: KAREN RE #: [id number] JORGE LUIS: 08/03/25 13:[address]: Savage Ramsay DEPT: [facility] Surgical RECD BY: Hetal Watt ENTERED: 08/03/25 14:19 SP TYPE: Surgical OTHR DR: Shahriar Clifford, Tissues: A - Gastric Biopsy B - Small Bowel Bx C - Colon Biopsy Procedures: Hematoxylin and Eosin Stain Gross and Microscopic Level 4
[2025-08-03 13:25] VITALS: BP 135/64; PULSE 58; RESP 20; O2SAT 100
[2025-08-03 13:35] VITALS: BP 148/79; PULSE 56; RESP 21; O2SAT 100
[2025-08-03 13:45] VITALS: BP 156/85; PULSE 55; RESP 20; O2SAT 100
== END 2025-08-03 14:00 | disposition home or self-care (01) ==
PROVIDERS: PCP Internal Medicine; Referring Provider Nurse Practitioner; Visit Provider Internal Medicine Gastroenterology
PROC: 0DJ08ZZ Inspection of Upper Intestinal Tract, Via Natural or Artificial Opening Endoscopic (ICD-10-PCS; CPT 45378; principal; 2025-08-03 14:00)
DX: K52.82 Eosinophilic colitis (principal); K64.8 Other hemorrhoids; K22.2 Esophageal obstruction; K44.9 Diaphragmatic hernia without obstruction or gangrene; Z87.891 Personal history of nicotine dependence
CPT/HCPCS: 45380; 43249; 43239; 88305; J2704; J7120